=== PATIENT | female | born 2000 | race Two or more races ===

== ENCOUNTER → 2023-11-20 | Emergency (ER) | payer OTHER ==
[~2023-11-20] VITALS: Ht 162.6 cm; Wt 54.4 kg
[~2023-11-20] MED LIST: BENADRYL25 MG PO; FAMOTIDINE/PF 20 MG/2 ML VIAL IV ONE; METHYLPREDNISOLONE SOD SUCC 125 MG VIAL IV ONE
[2023-11-20 17:15] VITALS: BP 112/75
[2023-11-20 18:59] VITALS: O2SAT 100
== END | disposition home or self-care (01) ==
LOC: ER 16:48
DX: T78.49XA Other allergy, initial encounter (principal); Z91.018 Allergy to other foods; Z91.010 Allergy to peanuts; X58.XXXA Exposure to other specified factors, initial encounter